=== PATIENT | male | born 1990 | race Caucasian/White ===

== ENCOUNTER 2017-10-23 18:48 | Inpatient (IN) | payer BC, OTHER ==
[~2017-10-23] VITALS: Ht 182.9 cm; Wt 62.1 kg
[2017-10-23] MEDS ORDERED: DOCUSATE SODIUM 250 MG CAPSULE PO PRN (20:15)
[2017-10-23] MEDS ORDERED: NICOTINE 14 MG/24HR PATCH TD PRN (20:15)
[2017-10-23] MEDS ORDERED: MAGNESIUM HYDROXIDE 30 ML LIQUID UDC PO PRN (20:15)
[2017-10-23] MEDS ORDERED: METHOCARBAMOL 750 MG TABLET PO PRN (20:15)
[2017-10-23] MEDS ORDERED: ONDANSETRON 4 MG/2 ML VIAL IM PRN (20:15)
[2017-10-23] MEDS ORDERED: LORAZEPAM 2 MG/1 ML VIAL IM PRN (20:15)
[2017-10-23] MEDS ORDERED: MIRALAX 17 GM POWD.PACK PO PRN (20:15)
[2017-10-23] MEDS ORDERED: diphenhydrAMINE 50 MG CAPSULE PO PRN (20:15)
[2017-10-23] MEDS ORDERED: MAG HYDROX/AL HYDROX/SIMETH 30 ML LIQUID UDC PO PRN (20:15)
[2017-10-23] MEDS ORDERED: ONDANSETRON ODT 4 MG TAB.RAPDIS SL PRN (20:15)
[2017-10-23] MEDS ORDERED: ACETAMINOPHEN 325 MG TABLET PO PRN (20:15)
[2017-10-23] MEDS ORDERED: CLONIDINE HCL 0.1 MG TABLET PO PRN (20:15)
[2017-10-23] MEDS ORDERED: LORAZEPAM 1 MG TABLET PO PRN ×2 (20:15)
[2017-10-23] MEDS ORDERED: BUPRENORPHINE HCL 2 MG TAB.SUBL SL PRN ×2 (20:15)
[2017-10-23] MEDS ORDERED: DICYCLOMINE HCL 20 MG TABLET PO PRN (20:15)
[2017-10-23] MEDS ORDERED: LOPERAMIDE HCL 2 MG CAPSULE PO PRN ×2 (20:15)
--- NOTE | 2017-10-23 20:30 | NUR ---
PRE-ADMISSION NOTE Patient is 27-year-old male seen at intake. Patient alert and oriented x4, ambulatory, respirations even and unlabored. Initial vital signs as follows: BP 129/72, HR 101, resp 18/min, O2 sat 98% on room air, temp 98.6. Patient reports left-sided abdominal pain, sharp pain most prominent at left upper quadrant. Patient reports relapse 2 weeks ago, with consistent meth and benzo use daily since. Patient reports allergy to sulfa drugs. SN instructed patient about unit protocols regarding admission process, vitals Q4H, skin and body check, med reconciliation, etc. Patient verbalized understanding to instructions. Will proceed with admission upon patients arrival to the unit.
[2017-10-23] MEDS ORDERED: LORAZEPAM 1 MG TABLET PO SCH (21:00)
[2017-10-23 21:04] LABS: BASOPHILS # (AUTO) 0.1 K/uL (0.0-8.0); BASOPHILS % (AUTO) 1.5 % (0.0-2.0); EOSINOPHILS # (AUTO) 0.2 K/uL (0.0-0.7); EOSINOPHILS % (AUTO) 2.9 % (0.0-7.0); HEMATOCRIT 44.1 % (36.7-47.1); HEMOGLOBIN 15.1 g/dL (12.5-16.3); LYMPHOCYTES # (AUTO) 2.4 K/uL (20.0-40.0); LYMPHOCYTES % (AUTO) 35.2 % (20.5-51.5); MEAN CORPUSCULAR HEMOGLOBIN 30.9 uug (23.8-33.4); MEAN CORPUSCULAR HGB CONC 34 g/dL (32.5-36.3); MEAN CORPUSCULAR VOLUME 90.2 fL (73.0-96.2); MONOCYTES # (AUTO) 0.5 K/uL (2.0-10.0); MONOCYTES % (AUTO) 6.9 % (0.0-11.0); NEUTROPHILS # (AUTO) 3.7 K/uL (1.8-8.9); NEUTROPHILS % (AUTO) 53.5 % (38.5-71.5); PLATELET COUNT (AUTO) 346 K/uL (152-348); RED BLOOD CELL COUNT(AUTO) 4.88 MIL/uL (4.06-5.63); WHITE BLOOD COUNT (AUTO) 6.9 K/uL (3.6-10.2)
[2017-10-23 21:04] LABS: *AMPHETAMINE, URINE POSITIVE (NEGATIVE); *BARBITURATE, URINE NEGATIVE (NEGATIVE); *CANNABINOID, URINE POSITIVE (NEGATIVE); *COCCAINE, URINE NEGATIVE (NEGATIVE); *OPIATE, URINE POSITIVE (NEGATIVE); *PHENCYCLIDINE SCREEN,URINE NEGATIVE (NEGATIVE)
[2017-10-23 21:13] LABS: ALANINE AMINOTRANSFERASE 26 U/L (16-63); ALKALINE PHOSPHATASE 86 U/L (50-136); ASPARTATE AMINOTRANSFERASE 18 U/L (15-37); BILIRUBIN,TOTAL 0.6 mg/dL (0.2-1.0); CARBON DIOXIDE 29 mmol/L (21-32); CHLORIDE 101 mmol/L (98-107); GLUCOSE 72 mg/dL (74-106); MAGNESIUM 2.2 mg/dL (1.8-2.4); POTASSIUM 3.7 mmol/L (3.5-5.1); TOTAL PROTEIN, SERUM 8.4 g/dL (6.4-8.2); UREA NITROGEN, BLOOD 12 mg/dL (7-18)
[2017-10-23 21:21] LABS: ETHANOL < 3 MG/DL (0-0)
[2017-10-23 21:23] LABS: THYROID STIMULATING HORMONE 1.782 mIU/mL (0.358-3.740)
[2017-10-23] MEDS: GABAPENTIN 300 MG CAPSULE PO SCH (21:38)
--- NOTE | 2017-10-23 21:38 | NUR ---
PRN BENADRYL Patient reports difficulty sleeping, requests aid. PRN Benadryl given PO. Safety measures in place, call light within reach. Will monitor for effectiveness.
[2017-10-23] MEDS: IBUPROFEN 600 MG TABLET PO PRN (21:44)
--- NOTE | 2017-10-23 21:44 | NUR ---
PRN ROBAXIN AND MOTRIN Patient reports pain 6/10, as well as "mouth, teeth, and jaw pain" reporting that teeth "feel brittle." PRN Robaxin and Motrin given PO. Safety measures in place, call light within reach. Will monitor for effectiveness.
--- NOTE | 2017-10-23 22:20 | NUR ---
Patient is 27-year-old male admitted to the unit today 10/23/17 for benzo withdrawal, with concurrent use of methamphetamine and cannabis. Patient reports taking morphine sulfate and dilaudid the past 48 hours due to recent hospital visit for intense abdominal pain. Patients skin and body check completed prior to unit tour. Patient was oriented to his room. Upon assessment, patients skin is dry and intact. Patient is 58 and weighs 137 lbs. Patient is alert and oriented x4, appearing anxious and visibly uncomfortable R/T ABD pain. Patient reports pain 6/10 on pain scale. Patient is ambulatory with steady gait. Patient reports allergy to sulfa drugs. Patient reports that his common withdrawal symptoms include but are not limited to the following: depression, anxiety, paranoia, psychosis, A/V hallucinations. Patient denies SI/HI and A/V hallucinations at this time. PERRLA. Patients lung sounds are clear bilaterally, patients abdomen is soft and non-distended, bowel sounds present x4 quadrants upon auscultation. Patient denies SOB or chest pain. Vital signs as follows: BP 129/72, HR 101, resp 18/min, O2 sat 98% on room air, temp 98.6. Patient reports history of seizure activity, only two episodes; first in 2013 and most recently last Tuesday10/21/17. Patient reports past medical history of anxiety, depression, borderline personality disorder, bulimia and insomnia. Patient is HIV positive. Patient reports past surgical history R/T bowel perforation in 2014 resulting in temporary colostomy for 4 months. Patient is the primary source of information. Patient reports he has a PCP and is an organ donor. Patient states he received both PNU/FLU vaccines but does not recall when. Patient requests FULL code status. Patient is on regular diet and states he does not eat pork. Patient denies family history of substance abuse. Patient states he smokes a pack of cigarettes daily. Patient reports the following home meds: Odefsey, 1 tab daily PO, and Propecia 2mg daily at bedtime. Substance Abuse history: 1.Xanax 4-6mg daily for the last 2 weeks, up to 10mg daily reports patient. Last intake was 10/22/17 of about 5mg. 2.Klonopin unspecified doses daily for the last 2 weeks. Last intake was 10/22/17 of unknown amount. 3.Methamphetamine (IV) 1-2 grams daily for the last 2 weeks. Last intake 10/21/17 of 1 gram. 4.Cannabis, smoke inhalation, unspecified amounts daily for at least last 2 weeks. Last intake on 10/22/17 of unknown amount. 5.ETOH, occasional binge drinking, intermittent. Last intake unknown, of unknown amount. 6.Morphine sulfate 12-14mg daily for last 48 hours, last intake 10/23/17 of 4mg at 1500. 7.Dilaudid unknown amount daily for last 48 hours, last intake 10/23/17 of 2mg at 1200. Patient reports [facility] last year, with a previous sobriety period of 15 months. Prior to relapse 2 weeks ago, patient reports 6 month period of sobriety. Patient is on fall and seizure precautions. Safety measures in place, side rails up x2, bed locked in low position, call light within reach. Will continue to monitor. Addendum: 10/24/17 at 0525 by ZEYNEP DE LA ROSA LVN ADMISSION NOTE
--- NOTE | 2017-10-23 22:38 | NUR ---
PRN BENADRYL REASSESSMENT Patient is resting in bed with eyes closed, respirations even and unlabored. PRN Benadryl effective. Safety measures in place, call light within reach. Will continue to monitor.
--- NOTE | 2017-10-23 22:44 | NUR ---
PRN ROBAXIN AND MOTRIN REASSESSMENT Patient reports little to no pain at this time. PRN Robaxin and Motrin effective. Safety measures in place, call light within reach. Will continue to monitor.
[2017-10-24] VITALS: BP 101/55
--- NOTE | 2017-10-24 | NUR ---
COWS AND CIWA DEFERRED COWS and CIWA deferred due to patient asleep; to be assessed and scored while patient is awake per protocol. Respirations are even and unlabored, 16/min. Safety measures in place, side rails up x2, bed locked in low position, call light within reach. Will continue to monitor.
[2017-10-24 04:00] VITALS: BP 93/46
--- NOTE | 2017-10-24 04:00 | NUR ---
COWS AND CIWA DEFERRED COWS and CIWA deferred again at 4AM due to patient sleeping; to be assessed and scored while patient is awake per protocol. Respirations are even and unlabored, 16/min. Safety measures in place, side rails up x2, bed locked in low position, call light within reach. Will continue to monitor.
[2017-10-24] MEDS ORDERED: EFAV1TAB PO (06:25)
[2017-10-24] MEDS ORDERED: FINA1TAB PO (06:25)
--- NOTE | 2017-10-24 07:15 | NUR ---
START OF SHIFT PATIENT IS A 27 YR OLD MALE ADMITTED TO [facility] ON 10/23/17 FOR WITHDRAWAL FROM BENZODIAZEPINES. HE WILL START ON AN ATIVAN TAPER TODAY. PATIENT IS ASLEEP IN BED AT THIS TIME BUT EASILY AROUSABLE TO NAME. PATIENT HAS SLEPT FOR 8 + HOURS. PRN MEDS GIVEN ON PM SHIFT : BENADRYL, MOTRIN AND ROBAXIN. LAST COWS 12 AND CIWA 11. PATIENT IS ON FALL PRECAUTIONS AND SEIZURE PRECAUTIONS DUE TO A RECENT DRUG INDUCED SEIZURE ON 10/21/17. WILL CONTINUE TO FOLLOW MD PLAN OF CARE.
--- NOTE | 2017-10-24 07:20 | NUR ---
END OF SHIFT Patient is a 27-year-old male admitted on 10/23/17 for benzo withdrawal. Patient is scheduled to start 5-day Ativan taper today. Patients last COWS was 12, last CIWA was 11. Patient received PRN Benadryl, Motrin and Robaxin, all noted to be effective. Patient slept for 8 hours, total intake 796, void x2, stool x0. Patient is on fall and seizure precautions with history of seizure x2, most recent on 10/21/17, and first occurrence in 2013. Safety measures in place, side rails up x2, bed locked in lowest position, call light within reach. Will endorse to day shift.
[2017-10-24 08:00] VITALS: BP 90/54
[2017-10-24] MEDS: GABAPENTIN 300 MG CAPSULE PO SCH ×2 (08:49→20:20)
[2017-10-24] MEDS: LORAZEPAM 1 MG TABLET PO SCH ×3 (08:49→20:19)
[2017-10-24] MEDS ORDERED: TUBERCULIN,PURIF.PROT.DERIV. 5 TU/0.1 ML TEST ID ONE (09:00)
--- NOTE | 2017-10-24 09:30 | NUR ---
PPD PLACED LEFT FOREARM
[2017-10-24 12:00] VITALS: BP 105/70
[2017-10-24 16:00] VITALS: BP 127/72
[2017-10-24] MEDS ORDERED: ESCI20TA37 PO (17:43)
[2017-10-24] MEDS ORDERED: EMTR1TAB14 PO (18:12)
--- NOTE | 2017-10-24 18:58 | NUR ---
END OF SHIFT PATIENT IS A 27 YR OLD MALE ADMITTED TO [facility] ON 10/23/17 FOR WITHDRAWAL FROM BENZODIAZEPINES. HE STARTED ON AN ATIVAN TAPER TODAY. PATIENT HAS ATTENDED GROUPS TODAY. PPD PLACED ON LEFT FOREARM. LAST COWS 9 AND CIWA 10 @ 1600. PATIENT IS ON FALL PRECAUTIONS AND SEIZURE PRECAUTIONS DUE TO A RECENT DRUG INDUCED SEIZURE ON 10/21/17. EKG PERFORMED AT 1830 RELATED TO POSSIBLE INTERACTION WITH SEROQUEL AND LEXAPRO. PATIENT HAS BEEN COMPLIANT THIS SHIFT AND HAS A QUIET WORRIED DEMEANOR. PATIENT HAD A FLUID INTAKE OF 4300 ML ,3 VOIDS AND 2 BM. WILL CONTINUE TO FOLLOW MD PLAN OF CARE.
[2017-10-24] MEDS: ESCITALOPRAM OXALATE 10 MG TABLET PO SCH (19:07)
[2017-10-24 20:00] VITALS: BP 112/65
--- NOTE | 2017-10-24 20:00 | NUR ---
Start of Shift Notes Received 27 y/o male px, admitted on 10/23/2017 ,for medically supervised withdrawals from Benzos and opiate. Px was placed on 5 day Ativan taper. Px tolerating well. Last reported COWS 9 and CIWA 10 by AM shift nurse. During the rounds at 1945, px appears anxious. Unfinished drinks noted on top of bed side table. Px stated "my anxiety is 5/10". Bilateral hand tremors noted. Px reported auditory hallucinations. Bed on lowest position, side rails up 2x and call light within reach. We'll continue to monitor.
[2017-10-24] MEDS: TENOFOVIR ALAFENAMIDE PO SCH (20:20)
[2017-10-24] MEDS: EMTRICITABINE PO SCH (20:20)
[2017-10-24] MEDS: QUETIAPINE FUMARATE 25 MG TABLET PO SCH (20:20)
[2017-10-24] MEDS: RILPIVIRINE PO SCH (20:20)
[2017-10-24] MEDS: PROPECIA PO SCH (20:20)
[2017-10-25] VITALS: BP 101/66
[2017-10-25 04:00] VITALS: BP 106/69
--- NOTE | 2017-10-25 04:00 | NUR ---
COWS and CIWA COWS and CIWA deferred at 0000 and 0400 due to the px is asleep, to assess if the px is awake per doctor's order. We'll continue to monitor.
[2017-10-25 06:06] LABS: *BASOS 0 % (Not Estab.); *EOS 3 % (Not Estab.); *EOS ABSOLUTE 0.2 x10E3/uL (0.0-0.4); *HCT 44.7 % (37.5-51.0); *IMMATURE GRANULOCYTES 0 % (Not Estab.); *LYMPHOCYTES 38 % (Not Estab.); *LYMPHOCYTES ABSOLUTE 2.6 x10E3/uL (0.7-3.1); *MCH 30.9 pg (26.6-33.0); *MCHC 33.6 g/dL (31.5-35.7); *MCV 92 fL (79-97); *MONOCYTES 5 % (Not Estab.); *MONOCYTES ABSOLUTE 0.3 x10E3/uL (0.1-0.9); *NEUTROPHILS 54 % (Not Estab.); *NEUTROPHILS ABSOLUTE 3.6 x10E3/uL (1.4-7.0); *PLT 346 x10E3/uL (150-379); *RBC 4.86 x10E6/uL (4.14-5.80); *RDW 13.3 % (12.3-15.4); *WBC 6.8 x10E3/uL (3.4-10.8)
--- NOTE | 2017-10-25 07:30 | NUR ---
End of Shift Notes During the shift, px slept most of the time. No PRN meds given. Last COWS 8, CIWA 8. Pxs oral intake is 800 ml, voided 1x, No BM. Px slept for 9 hours. At 0630, px is asleep on bed in right side lying position. Bed on lowest position, side rails up 2x and call light within reach. We'll continue to monitor. Px endorsed to AM shift nurse.
[2017-10-25 08:00] VITALS: BP 150/69
--- NOTE | 2017-10-25 08:00 | NUR ---
rec d patient asleep with unlabored respirations , arousabyle to verbal and tactile stimulation cow =8 ciwa = 8 , patient remains on ativan taper will monitor for s/s of withdrawal
[2017-10-25 08:06] LABS: HEPATITIS B SURFACE AG Negative (Negative)
[2017-10-25] MEDS ORDERED: HYDROXYZINE PAMOATE 25 MG CAPSULE PO PRN (09:00)
[2017-10-25] MEDS ORDERED: LORAZEPAM 1 MG TABLET PO SCH ×3 (09:00→21:00)
[2017-10-25] MEDS: GABAPENTIN 300 MG CAPSULE PO SCH ×2 (10:41→20:56)
[2017-10-25] MEDS: ESCITALOPRAM OXALATE 10 MG TABLET PO SCH (10:41)
[2017-10-25] MEDS: EMTRICITABINE PO SCH (10:42)
[2017-10-25] MEDS: RILPIVIRINE PO SCH (10:42)
[2017-10-25] MEDS: TENOFOVIR ALAFENAMIDE PO SCH (10:42)
[2017-10-25 12:00] VITALS: BP_SYST 105
[2017-10-25 16:00] VITALS: BP 98/52
[2017-10-25 16:07] LABS: *HELPER T-LYMPH MARKR(CD4)ABSO 962 /uL (359-1519)
--- NOTE | 2017-10-25 16:45 | NUR ---
Therapist prompted client about group times. Client stated he will start attending group therapy tomorrow.
--- NOTE | 2017-10-25 18:56 | NUR ---
end of shift, patient in room all shift except for 1500 group ,no prns or behavior issues or c/o pain
--- NOTE | 2017-10-25 19:40 | NUR ---
Start of Shift Notes Received 27 y/o male px, admitted for medically supervised withdrawals from Benzos and opiate. Px was placed on 5 day Ativan taper. Px tolerating well. Last reported COWS 8 and CIWA 8 by AM shift nurse. During the rounds at 1940, Px is awake on bed in long sitting position, using a laptop. Px appears anxious. Unfinished drinks noted on top of bed side table. Unfolded clothes on top of cabinet and on the floor also noted. Px stated "my anxiety is 4/10. I have body aches of 5/10. Can I have Ibuprofen?" Bilateral hand tremors noted. Bed on lowest position, side rails up 2x and call light within reach. We'll continue to monitor.
[2017-10-25 20:00] VITALS: BP 111/72
[2017-10-25] MEDS: QUETIAPINE FUMARATE 25 MG TABLET PO SCH (20:56)
[2017-10-25] MEDS: PROPECIA PO SCH (20:56)
[2017-10-25] MEDS: IBUPROFEN 600 MG TABLET PO PRN (20:56)
--- NOTE | 2017-10-25 20:56 | NUR ---
PRN Motrin Px was given Motrin 600 mg/tab, 1 tab PO for pain of 5/10. We'll continue to monitor.
--- NOTE | 2017-10-25 22:00 | NUR ---
Reassessment of Pain Px stated that his body aches improved to 2/10. We'll continue to monitor.
[2017-10-26] VITALS: BP 109/73
[2017-10-26 04:00] VITALS: BP 113/71
--- NOTE | 2017-10-26 07:22 | NUR ---
End of Shift Notes During the shift at 2055, px was given Motrin 600 mg PO for pain of 5/10. It was effective. Px's oral intake is 1,500 ml, voided 2x, BM 1x. Px slept for total of 7 hours. Last COWS 7 and CIWA 7. Bed on lowest position, side rails up 2x and call light within reach. We'll continue to monitor. Px endorsed to Am shift nurse.
--- NOTE | 2017-10-26 07:30 | NUR ---
START OF SHIFT Pt is a 27 yr old male, AA&Ox4. pt was admitted on 10/23/17 for Benzo/Opiate withdrawal and is on 5 day Ativan taper as ordered. Received report from third shift lieutenant nurse. Pt received Motrin PRN for pain mgt. Medication was effective. pt slept for 7 hrs. Last CIWA score was 7 and COWS score was 7. Pt is currently in bed sleeping with respirations even and unlabored. Skin is intact, warm and moist to touch. Pt is on fall and seizure precautions. Call light is within reach. Will continue to monitor.
[2017-10-26 08:00] VITALS: BP 98/56
[2017-10-26] MEDS: ESCITALOPRAM OXALATE 10 MG TABLET PO SCH (08:47)
[2017-10-26] MEDS: GABAPENTIN 300 MG CAPSULE PO SCH ×3 (08:47→20:28)
[2017-10-26] MEDS: LORAZEPAM 1 MG TABLET PO SCH ×2 (08:47→20:29)
[2017-10-26] MEDS: EMTRICITABINE PO SCH (08:49)
[2017-10-26] MEDS: TENOFOVIR ALAFENAMIDE PO SCH (08:49)
[2017-10-26] MEDS: RILPIVIRINE PO SCH (08:49)
[2017-10-26 12:00] VITALS: BP 116/71
[2017-10-26 16:00] VITALS: BP 105/61
--- NOTE | 2017-10-26 19:10 | NUR ---
END OF SHIFT Pt is a 27 yr old male, AA&Ox4. pt was admitted on 10/23/17 for Benzo/Opiate withdrawal and is on 5 day Ativan taper as ordered. Pt has been noted to keep himself secluded and remained in his room throughout the day. Pt refused to attend group therapy. Pt is noted with flat affect. Skin is intact, warm and moist to touch. Last COWS score was 8 and CIWA score was 8 at 1600. Pt is on fall and seizure precautions. Pt was encouraged increase fluid intake. No PRN's were given during the day. Call light is within reach.
--- NOTE | 2017-10-26 19:40 | NUR ---
Start of Shift Note Received 27 y/o male px, admitted for medically supervised withdrawals from Benzos and opiate. Px was placed on 5 day Ativan taper started on 10/23/2017. Px is tolerating well. Last reported COWS 8 and CIWA 8 by AM shift nurse. During the rounds at 1940, Px is awake on bed in long sitting position, using a laptop. Px appears relaxed. No complaints made. Unfinished drinks noted on top of bed side table. Soiled clothes and towel also noted on the floor. Px stated "my anxiety is 2/10". Bed on lowest position, side rails up 2x and call light within reach. We'll continue to monitor.
[2017-10-26 20:00] VITALS: BP 117/72
[2017-10-26] MEDS: PROPECIA PO SCH (20:28)
[2017-10-26] MEDS: QUETIAPINE FUMARATE 25 MG TABLET PO SCH (20:29)
[2017-10-27] VITALS (7 sets, daily range): BP systolic 104–127; BP diastolic 53–80
--- NOTE | 2017-10-27 07:25 | NUR ---
End of Shift Note During the shift, px slept most of the time. No complaints made. No PRN meds given. Px's oral intake is 1 L, voided 2x, BM 1x. At 0630, px is asleep on bed in left side lying position. Bed on lowest position, side rails up 2x and call light within reach. We'll continue to monitor. Px endorsed to AM shift nurse
--- NOTE | 2017-10-27 07:36 | NUR ---
START OF SHIFT Pt is a 27 yr old male, AA&Ox4. Pt was admitted on 10/23/17 for Benzo/Opiate withdrawal and is on 5 day Ativan taper as ordered. Received report from security shift manager nurse. No PRNs were given during the night. Pt slept for 7 hrs. Last CIWA score was 6 and COWS score was 6. Pt is currently in bed sleeping with respirations even and unlabored. Skin is intact, warm and moist to touch. Pt is on fall and seizure precautions. Call light is within reach. Will continue to monitor.
[2017-10-27] MEDS ORDERED: LORAZEPAM 1 MG TABLET PO SCH (09:00)
[2017-10-27] MEDS: GABAPENTIN 300 MG CAPSULE PO SCH ×3 (09:24→22:00)
[2017-10-27] MEDS: ESCITALOPRAM OXALATE 10 MG TABLET PO SCH (09:24)
[2017-10-27] MEDS: EMTRICITABINE PO SCH (09:25)
[2017-10-27] MEDS: TENOFOVIR ALAFENAMIDE PO SCH (09:25)
[2017-10-27] MEDS: RILPIVIRINE PO SCH (09:25)
[2017-10-27] MEDS: NICOTINE POLACRILEX 4 MG GUM-PK OF TEN BC PRN ×3 (09:33→15:32)
--- NOTE | 2017-10-27 09:33 | NUR ---
PRN GIVEN Pt requested for Nicotine Gum 4mg Chew for smoking cessation. Nicotine Gum 4mg PRN was given as ordered. Will continue to monitor.
--- NOTE | 2017-10-27 12:09 | NUR ---
PRN GIVEN Pt requested for Nicotine Gum 4mg Chew for smoking cessation. Nicotine Gum 4mg PRN and NicoDerm patch 14mg PRN was applied as ordered. Will continue to monitor.
--- NOTE | 2017-10-27 15:32 | NUR ---
PRN GIVEN Pt requested for Nicotine Gum 4mg Chew for smoking cessation. Nicotine Gum 4mg PRN was given as ordered. Will continue to monitor.
[2017-10-27] MEDS ORDERED: HYDR-3895 PO (15:37)
[2017-10-27] MEDS ORDERED: IBUP-1955 PO (15:37)
[2017-10-27] MEDS ORDERED: DIPH50CA37 PO (15:37)
[2017-10-27] MEDS ORDERED: ESCI10TA PO (15:37)
[2017-10-27] MEDS ORDERED: QUET25TA PO (15:37)
[2017-10-27] MEDS ORDERED: GABA-534 PO (15:37)
--- NOTE | 2017-10-27 18:10 | NUR ---
PRN GIVEN/MD COMMUNICATION Pt c/o tightness in his chest after dinner. VS were obtained BP 122/75 P 73, R 16, O2 was 100%. Pt states pain level is non-radiating. Pt is c/o increase anxiety. Notified Dr. Madison with order to monitor, if pain level persist in 1 hour notified MD. Pt was given Maalox 30ML for heartburn. Will continue to monitor.
--- NOTE | 2017-10-27 18:46 | NUR ---
PRN RE-ASSESSMENT Maalox 30mL was effective. Pt states the tightness of his chest "went away" and he feels "much better". MD was made aware. Will continue to monitor.
--- NOTE | 2017-10-27 18:54 | NUR ---
END OF SHIFT Pt is a 27 yr old male, AA&Ox4. Pt was admitted on 10/23/17 for Benzo/Opiate withdrawal and has completed a 5 day Ativan taper as ordered. Pt has been noted to keep himself secluded and remained in his room throughout the day. Pt refused to attend group therapy. Pt is noted with flat affect. Skin is intact, warm and moist to touch. Pt received NicoDerm Patch 14mg PRN at 1209 and Nicotine Gum 4mg at 0933, 1209, and 1523 for smoking cessation. Pt also c/o tightness in his chest. Maalox 30mL PO PRN was given and effective. Pt states of feeling "better". Pt is to be discharged tomorrow on 10/28/17. Last COWS score was 3 and CIWA score was 4 at 1600. Pt is on fall and seizure precautions. Pt was encouraged increase fluid intake for hydration. Call light is within reach.
--- NOTE | 2017-10-27 19:15 | NUR ---
Start of Shift Note: Received patient from day shift nurse. Patient is a 27 y.o male admitted on 09/25/17 for medically supervised withdrawal from Benzos. Patient is alert & oriented x4. Patient is ambulatory with a steady gait. Patient noted with an anxious/irritable mood and has blunt affect. Patient completed his Ativan taper and is scheduled to be discharge tomorrow. Patient received PRN Nicotine gum x3, Mylanta and Nicotine patch during the day. Last COWS 3 CIWA 4 noted. Encourage pt to increase fluid intake. Educated patient of current plan of care for the night. Safety measures in place. Will continue to monitor patient.
[2017-10-27] MEDS: PROPECIA PO SCH (22:00)
[2017-10-27] MEDS: QUETIAPINE FUMARATE 25 MG TABLET PO SCH (22:00)
--- NOTE | 2017-10-27 22:03 | NUR ---
PRN Vistaril Patient complains of anxiety. PRN Vistaril administered as ordered. Will monitor for effectiveness of medication.
--- NOTE | 2017-10-27 23:03 | NUR ---
PRN Reassessment Patient verbalized decreased in anxiety after medication administration. Patient in bed and appears comfortable. safety measures in place. Will continue to monitor patient.
[2017-10-28] MEDS: NICOTINE POLACRILEX 4 MG GUM-PK OF TEN BC PRN (06:34)
--- NOTE | 2017-10-28 07:18 | NUR ---
Discharge Note: Patient is a 27 y.o male admitted on 09/25/17 for medically supervised withdrawal from Benzos. Patient completed his Ativan taper. Patient in stable condition. Vitals WNL. B/P 102/68, NM 71, RR 17, Temp 97.7, O2Sat @ 100%. Skin noted to be intact. Pt denies any SI/HI at this time. All discharge paper work signed and dated, pt discharged from [facility] on 10/28/17 at 0718. Pt left building with all his medications, belongings and prescriptions. notified.
== END 2017-10-28 07:18 | DRG 895 ==
LOC: SRC 19:35
PROVIDERS: ADMIT Internal Medicine; ATTEND Internal Medicine
PROC: HZ2ZZZZ Detoxification Services for Substance Abuse Treatment (ICD-10-PCS; principal; 2017-10-23)
PROC: HZ41ZZZ Group Counseling for Substance Abuse Treatment, Behavioral (ICD-10-PCS; 2017-10-24)
PROC: HZ31ZZZ Individual Counseling for Substance Abuse Treatment, Behavioral (ICD-10-PCS; 2017-10-25)
DX: F13.239 Sedative, hypnotic or anxiolytic dependence with withdrawal, unspecified (principal); F50.9 Eating disorder, unspecified; I15.9 Secondary hypertension, unspecified; F15.23 Other stimulant dependence with withdrawal; F11.23 Opioid dependence with withdrawal; F41.9 Anxiety disorder, unspecified; F60.3 Borderline personality disorder; G47.00 Insomnia, unspecified; Z81.1 Family history of alcohol abuse and dependence; Z82.49 Family history of ischemic heart disease and other diseases of the circulatory system; F17.210 Nicotine dependence, cigarettes, uncomplicated; F12.20 Cannabis dependence, uncomplicated; E16.2 Hypoglycemia, unspecified; F32.9 Major depressive disorder, single episode, unspecified
CPT/HCPCS: 36415; 70030-TC; 80307; 80324; 80346; 80349; 80361; 83735; 84443; 85025; 86361; 86580; 86592; 86705; 86803; 87340; 87806; 93005; A4663; G0480; Q0163